=== PATIENT | male | born 1955 | race Caucasian/White ===

== ENCOUNTER 2020-06-16 01:06 | Emergency (ER) | payer MEDICARE, MEDICAID ==
[2020-06-16] MEDS ORDERED: Furosemide 40 MG/4 ML VIAL IVPUSH ONE (01:40)
--- NOTE | 2020-06-16 01:41 | EDM.PDOC ---
ED HPI GENERAL MEDICAL PROBLEM - General Chief Complaint: Cardiovascular Problem Stated Complaint: HIGH BLOOD PRESSURE, HAS THROAT [id number] Time Seen by Provider: 06/16/20 01:20 Source of Information: Reports: Patient History Limitations: Reports: No Limitations - History of Present Illness INITIAL COMMENTS - FREE TEXT/NARRATIVE: Patient comes emergency department today with complaints of shortness of breath tightness in his chest and hypertension. Patient has a longstanding history of hypertension for which she has battled for many years. He typically runs a bloo d pressure of about 170/80-90. Over the past couple of days he has noticed that his blood pressure is been in the 200s systolically in the morning. He has been taking his labetalol clonidine and lisinopril as prescribed. He has noticed the past few nights when he tries to lay down he has more short of breath and it is difficult for him to catch his breath. He also has some tightness on his chest when he lays down. He has no real cough or congestion. No fever no chills. No weakness dizziness lightheadedness. No palpitations. The tightness in his chest improves after he sits up. He has had no fever or chills. No COVID exposure no COVID symptoms. No abdominal pain nausea or vomiting. No hematuria dysuria or urinary frequency. No headaches. No visual disturbances. No floaters or flashers in his vision. He does note that over the past couple of days he has had increased edema to his lower extremities. Treatments DIRECTOR CPG: Reports: EKG - Related Data Allergies Allergy/AdvReac Type Severity Reaction Status Date / Time No Known Allergies Allergy Verified 06/16/20 01:42 Home Meds: Home Meds Fluocinonide [Lidex 0.05% Crm] 1 applic TOP BID PRN 06/16/20 [History] Labetalol HCl [Labetalol] 400 mg PO BID 06/16/20 [History] Levothyroxine Sodium [Levo-T] 175 mcg PO DAILY 06/16/20 [History] Losartan Potassium [Cozaar] 100 mg PO DAILY 06/16/20 [History] Simvastatin [Zocor] 20 mg PO BEDTIME 06/16/20 [History] Zolpidem Tartrate 10 mg PO BEDTIME 06/16/20 [History] cloNIDine [Catapres] 0.1 mg PO TID PRN 06/16/20 [History] lisinopriL [Lisinopril] 40 mg PO DAILY 06/16/20 [History] oxyCODONE HCl [Oxycodone HCl] 30 mg PO TID PRN 06/16/20 [History] Past Medical History Cardiovascular History: Reports: CAD, High Cholesterol, Hypertension Gastrointestinal History: Reports: Hiatal Hernia Psychiatric History: Reports: Anxiety Endocrine/Metabolic History: Reports: Hypoparathyroidism, Hypothyroidism, Obesity/BMI 30+ Oncologic (Cancer) History: Reports: Thyroid - Past Surgical History Cardiovascular Surgical History: Reports: Coronary Artery Stent GI Surgical History: Reports: Appendectomy Endocrine Surgical History: Reports: Parathyroidectomy, Thyroidectomy Social & Family History - Family History Family Medical History: Noncontributory ED ROS GENERAL - Review of Systems Review Of Systems: Comprehensive ROS is negative, except as noted in HPI. ED EXAM, GENERAL - Physical Exam Exam: See Below Exam Limited By: No Limitations General Appearance: Alert, WD/WN, No Apparent Distress Eye Exam: Bilateral Eye: EOMI, PERRL Ears: Normal External Exam Nose: Normal Inspection Throat/Mouth: Normal Inspection Head: Normocephalic Neck: Normal Inspection, Supple, Non-Tender, Full Range of Motion. No: Carotid Bruit Respiratory/Chest: No Respiratory Distress, No Accessory Muscle Use, Chest Non- Tender, Crackles (Fine inspiratory crackles in the bases bilaterally) Cardiovascular: Normal Peripheral Pulses, Regular Rate, Rhythm. No: Systolic Murmur Peripheral Pulses: 2+: Radial (L), Radial (R), Posterior Tibial (L), Posterior Tibial (R), Dorsalis Pedis (L), Dorsalis Pedis (R) GI/Abdominal: Normal Bowel Sounds, Soft, Non-Tender (Male) Exam: Deferred Rectal (Males) Exam: Deferred Back Exam: Normal Inspection, Full Range of Motion Extremities: Normal Inspection, Normal Range of Motion, Non-Tender, Normal Capillary Refill, Pedal Edema (2+ pitting edema alf up the tibia.) Neurological: Alert, Oriented, Normal Cognition, No Motor/Sensory Deficits Psychiatric: Normal Affect, Normal Mood Skin Exam: Warm, Dry, Intact, Normal Color EKG INTERPRETATION EKG Date: 06/16/20 Time: 01:17 Rhythm: NSR Rate (Beats/Min): [address]: Normal P-Wave: Present QRS: Normal ST-T: Normal QT: Normal Comparison: NA - No Prior EKG Course - Vital Signs Last Recorded V/S: Last Vital Signs Temp 97.5 F 06/16/20 01:18 Pulse 72 06/16/20 02:53 Resp 19 06/16/20 02:53 BP 168/84 H 06/16/20 02:53 Pulse Ox 99 06/16/20 02:53 - Orders/Labs/Meds Orders: Active Orders 24 hr Category Date Time Status EKG Documentation Completion [RC] URGENT Care 06/16/20 01:15 Active Labs: Laboratory Tests 06/16/20 06/16/20 06/16/20 Range/Units 01:25 01:25 02:30 WBC 9.8 (5.0-10.0) 10^3/uL RBC 4.68 (4.6-6.2) 10^6/uL Hgb 14.3 (14.0-18.0) g/dL Hct 39.6 L (40.0-54.0) % MCV 84.6 (80-100) fL MCH 30.6 (27.0-34.0) pg MCHC 36.1 H (33.0-35.0) g/dL Plt Count 221 (150-450) 10^3/uL Neut % (Auto) 69.5 (42.2-75.2) % Lymph % (Auto) 14.5 L (20.5-50.1) % [place] % (Auto) 9.9 H (2-8) % Eos % (Auto) 5.1 H (1.0-3.0) % Baso % (Auto) 1.0 (0.0-1.0) % Sodium 140 (136-145) mmol/L Potassium 3.3 L (3.5-5.1) mmol/L Chloride 103 (98-107) mmol/L Carbon Dioxide 27 (21-32) mmol/L Anion Gap 13.3 H (7-13) mEq/L BUN 8 (7-18) mg/dL Creatinine 0.88 (0.70-1.30) mg/dL Est Cr Clr Drug Dosing 91.51 mL/min Estimated GFR (MDRD) > 60 BUN/Creatinine Ratio 9.1 (No establ ref range) Glucose 94 (74-99) mg/dL Calcium 8.4 L (8.5-10.1) mg/dL Total Bilirubin 1.4 H (0.2-1.0) mg/dL AST 18 (15-37) U/L ALT 26 (16-63) U/L Alkaline Phosphatase 86 (46-116) U/L Troponin I < 0.017 (0.000-0.056) ng/mL B-Natriuretic Peptide 126 H (0-100) pg/ml Total Protein 7.4 (6.4-8.2) g/dL Albumin 4.2 (3.4-5.0) g/dL Globulin 3.2 Albumin/Globulin Ratio 1.3 Urine Color Yellow (YELLOW) Urine Appearance Clear (CLEAR) Urine pH 7.0 (5.0-9.0) Ur Specific [place] 1.015 (1.005-1.030) Urine Protein Negative (NEGATIVE) Urine Glucose (UA) Negative (NEGATIVE) Urine Ketones Negative (NEGATIVE) Urine Occult Blood Trace-intact H (NEGATIVE) Urine Nitrite Negative (NEGATIVE) Urine Bilirubin Negative (NEGATIVE) Urine Urobilinogen 0.2 (0.2-1.0) mg/dL Ur Leukocyte Esterase Negative (NEGATIVE) Urine RBC 0-5 /HPF Urine WBC 0-5 (0-5/HPF) /HPF Ur Epithelial Cells Occasional (NOT SEEN) /HPF Urine Bacteria Rare (0-FEW/HPF) /HPF Meds: Medications Discontinued Medications Generic Name Dose Route Start Last Admin Trade Name Freq PRN Reason Stop Dose Admin Aspirin 324 mg 06/16/20 01:43 06/16/20 01:47 Aspirin PO 06/16/20 01:44 324 mg ONETIME ONE Administration Furosemide 40 mg 06/16/20 01:40 06/16/20 01:45 Lasix IVPUSH 06/16/20 01:41 40 mg NOW ONE Administration Hydrochlorothiazide 25 mg 06/16/20 03:18 Hydrochlorothiazide PO 06/16/20 03:19 ONETIME ONE Potassium Chloride 20 meq 06/16/20 03:20 Klor-Con 10 PO 06/16/20 03:21 ONETIME ONE - Radiology Interpretation Free Text/Narrative:: CXR per radiology no acute findings. - Re-Assessments/Exams Free Text/Narrative Re-Assessment/Exam: 06/16/20 03:26 ASA 324 mg orally. Labs drawn. UA negative no proteinuria. Trop negative. Pro-BNP 126. EKG negative. With the edema and the orthopnea lasix 40mg IVP the patient subsequently diuresed about 1500 mils while in the emergency department. Pressure did improve to 168/84 and he states this is the best that has been in years. He is on a rather interesting regiment of blood pressure medication with the lisinopril labetalol and clonidine. He has been on amlodipine in the past although he has quite a bit of peripheral edema with this. He has never been on any hydrochlorothiazide or chlorthalidone. His shortness of breath and his symptoms did not really improve with the diuresis although his blood pressure did. Lasix is not indicated at this time for blood pressure management without the obvious diagnosis of congestive heart failure which is clearly not overtly evident at this time. He does have sleep apnea although he does not have a CPAP machine. His symptoms of shortness of breath really worsened and it feels like it is tight in his neck when he lays down. 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 This is something he needs to follow-up with [facility] to reevaluate. I will start him on hydrochlorothiazide as well as potassium as he is hypokalemic today. I did assure him that hydrochlorothiazide will not be enough to control his blood pressure that has been recurrently 200 systolically. Although we need to begin somewhere and I feel that this is the best course of action at this time as he has failed amlodipine in the past due to peripheral edema. I would like him to weigh himself daily over the next week and see what his weight does. Consideration for some low-dose Lasix in the future would be appropriate if he continues to have the edema and the hypertension although we should follow the [facility] guidelines and have him on hydrochlorothiazide as well. This would be best suited and managed to be cared for in the primary care setting. He is understanding of this and his questions are answered. Departure - Departure Time of Disposition: 03:22 Disposition: Home, Self-Care 01 Clinical Impression: Hypokalemia, SOB (shortness of breath) Hypertension Qualifiers: Hypertension type: unspecified Qualified Code(s): I10 - Essential (primary) hypertension Instructions: Shortness of Breath, Adult, [id number], Hypertension, Adult, [id number], Potassium Content of Foods Forms: ED Department Discharge Additional Instructions: Continue with your previous medications. Add Hydrochlorothiazide 1 tablet daily. RX given to the patient. Potassium (K-Dur) 1 tablet daily. Rx given to the patient. Weight yourself daily. Keep your appointment on Monday with Internal Medicine. Consider lab recheck for potassium. And CPAP machine for your unmanaged sleep apneas. An aspect of your SOB may be due to physiological changes in your neck throat airway due to your cancer and surgeries. Discuss with [place]. Return to the ED if new or worsening symptoms. Follow up on monday as planned. Sepsis Event Note (ED) - Evaluation Sepsis Screening Result: No Definite Risk - Focused Exam Vital Signs: Vital Signs Temp Pulse Resp BP Pulse Ox 06/16/20 02:53 72 19 168/84 H 99 06/16/20 02:33 63 14 171/90 H 100 06/16/20 02:10 70 19 178/90 H 97 06/16/20 01:18 97.5 F 64 16 201/92 H 100 - My Orders Last 24 Hours: My Active Orders 06/16/20 01:15 EKG Documentation Completion [RC] URGENT - Assessment/Plan Last 24 Hours: My Active Orders 06/16/20 01:15 EKG Documentation Completion [RC] URGENT Assessment:: Uncontrolled hypertension we will add hydrochlorothiazide. Hypokalemia potassium 20 mEq daily SOB wonder if this isn't some changes physiologically due to the throat cancer. Plan: Continue with your previous medications. Add Hydrochlorothiazide 1 tablet daily. RX given to the patient. Potassium (K-Dur) 1 tablet daily. Rx given to the patient. Weight yourself daily. Keep your appointment on Monday with Internal Medicine. Consider lab recheck for potassium. And CPAP machine for your unmanaged sleep apneas. An aspect of your SOB may be due to physiological changes in your neck throat airway due to your cancer and surgeries. Discuss with [place]. Return to the ED if new or worsening symptoms. Follow up on monday as planned.
[2020-06-16] MEDS ORDERED: Aspirin 81 MG Tab.Chew PO ONE (01:43)
[2020-06-16 01:55] LABS: ANION GAP 13.3 mEq/L (7-13); CHLORIDE,CL 103 mmol/L (98-107); SODIUM,NA 140 mmol/L (136-145)
--- NOTE | 2020-06-16 02:34 | CR ---
PROCEDURE INFORMATION: Exam: XR Chest, 2 Views Exam date and time: 06/16/2020 2:19 AM Age: 65 years old Clinical indication: Shortness of breath; Additional info: Cp SOB TECHNIQUE: Imaging protocol: XR of the chest Views: 2 views. COMPARISON: No relevant prior studies available. FINDINGS: Lungs: Unremarkable. No consolidation. Pleural space: Unremarkable. No pleural effusion. No pneumothorax. Heart/Mediastinum: Unremarkable. No cardiomegaly. Bones/joints: Unremarkable. IMPRESSION: No acute findings.
[2020-06-16] MEDS ORDERED: Hydrochlorothiazide 25 MG Tab PO ONE (03:18)
[2020-06-16] MEDS ORDERED: Potassium Chloride 10 MEQ Tab.ER PO ONE (03:20)
== END 2020-06-16 03:40 | disposition home or self-care (01) ==
LOC: DL.ED 01:06
DX: E87.6 Hypokalemia (principal); R06.02 Shortness of breath; I10 Essential (primary) hypertension; I25.10 Atherosclerotic heart disease of native coronary artery without angina pectoris; E20.9 Hypoparathyroidism, unspecified; E66.9 Obesity, unspecified; Z68.34 Body mass index [BMI] 34.0-34.9, adult; Z95.5 Presence of coronary angioplasty implant and graft; Z79.899 Other long term (current) drug therapy
CPT/HCPCS: 36415; 71046; 80053; 81001; 83880; 84443; 84484; 85025; 93005; 96374; 99285; A9270; J1940